=== PATIENT | female | born 1940 | race Caucasian/White ===

== ENCOUNTER 2020-03-29 09:34 | Emergency (ER) | payer MEDICARE, MEDICAID, SELFPAY ==
[2020-03-29 09:35] VITALS: BP 128/54; PULSE 94; RESP 16; TEMP 37.4; O2SAT 92; BMI 28.8
--- NOTE | 2020-03-29 10:08 | PC.NURSE ---
I called and spoke with pt's daughter in law and told her that the pt was A&O times 3. Pt was able to tell me her name, , that she was in a hospital and what year it was. Pt advises she does not want anything done at this time. I asked her about starting an IV, getting a urine and obtaining a chest x-ray. PT declined all of the following procedures. When I spoke with SAMIA she advised that we were to follow the patient's wishes and do what she asked, and confirmed her DNR status. KAYLEEN Holliday spoke with SAMIA and confirmed this also
[2020-03-29 10:36] VITALS: BP 141/83
--- NOTE | 2020-03-29 10:38 | PC.NURSE ---
Due to pt declining to have any work up done she has removed the pulse ox and does not want to have anything done. Pt is resting in her room with the lights off in position of comfort.
--- NOTE | 2020-03-29 10:40 | [facility].EDGENADL ---
ED Disposition Clinical Impression: Pneumonia Disposition: Home, Self-Care Condition on Discharge: Good Instructions: Pneumonia-Adult Referrals: Yovany Hickey MD [Primary Care Provider] - - Critical Care Critical Care Time: No Attestation: On 03/29/20, the high probability of a clinically significant, sudden or life threatening deterioration of the following system(s) required my full and direct attention, intervention and personal management. The time I documented below is in addition to time spent performing reported procedures but includes the following listed in this critical care notation. Medical Decision Making - Medical Records Medical records reviewed: Yes: I reviewed the patient's medical records. - Mt Inquiry Pt receiving controlled substance: No Vital Signs: 03/29/20 09:35 03/29/20 10:36 Temperature 99.4 F Temperature Source Oral Pulse Rate [Right] 94 H Respiratory Rate 16 Blood Pressure [Right Arm] 128/54 L 141/83 H Blood Pressure Mean [Right Arm] 78 102 Blood Pressure Source [Right Arm] Automatic Cuff Automatic Cuff Blood Pressure Position [Right Arm] Sitting Sitting 02 Sat by Pulse Oximetry 92 L Oxygen Delivery Method Nasal Cannula Oxygen Flow Rate (LPM) 2 - Lab Data Lab results reviewed: Yes: I reviewed the patient's lab results. General Adult HPI - General Chief complaint: Weakness Stated complaint: not feeling well Time Seen by Provider: 03/29/20 10:40 Mode of Arrival: EMS Source of Information: Patient Limitations: No Limitations Description of Symptoms (Recalled from ER Triage Doc. by RN): Pt c/o from [facility], staff advises pt has been declining over the past couple of days.Pt is being treated for UTI and pneumonia. Pt arrived to ED and advises she doesn't want any treatment and doesn't want to be bothered at this time. - History of Present Illness HPI narrative: 79-year-old female presented to the ED via detention. group home stated that she has had UTI and also being treated for pneumonia but just has not done well over the last couple of days. When the patient got here in the ED she stated she did not want anything done. Patient is alert and oriented x4. She states that she did not want to come over here in the first place but the detention sent her. We also spoke with the daughter and the daughter stated that she would like to respect her mother's wishes and since she does not want to be treated she just wants to go back to the detention. OtherwisePatient denies any recent cough or shortness of breath, patient denies any sore throat or headache, patient denies any loss of taste or smell, patient denies any malaise or fatigue, patient denies any abdominal pain nausea vomiting or diarrhea. - Related Data Home Medications Medication Instructions Recorded Confirmed acetaminophen 500 mg tablet 500 mg PO Q6H PRN 02/18/20 02/18/20 aspirin 81 mg tablet,delayed 81 mg PO DAILY 02/18/20 02/18/20 release atorvastatin 20 mg tablet 20 mg PO DAILY 02/18/20 02/18/20 bisacodyl 10 mg rectal suppository 10 mg [place] DAILY PRN 02/18/20 02/18/20 calcium carbonate 500 mg calcium 500 mg PO BID 02/18/20 02/18/20 (1,250 mg) chewable tablet cholecalciferol (vitamin D3) 25 25 mcg PO DAILY 02/18/20 02/18/20 mcg (1,000 unit) capsule digoxin 125 mcg (0.125 mg) tablet 125 mcg PO DAILY 02/18/20 02/18/20 fluticasone 250 mcg-salmeterol 50 1 inh INHALATION BID 02/18/20 02/18/20 mcg/dose blistr powdr for inhalation hydrochlorothiazide 25 mg tablet 25 mg PO DAILY 02/18/20 02/18/20 isosorbide mononitrate 30 mg 30 mg PO DAILY 02/18/20 02/18/20 tablet,extended release 24 hr levothyroxine 25 mcg tablet 25 mcg PO DAILY 02/18/20 02/18/20 loratadine 10 mg tablet 10 mg PO DAILY 02/18/20 02/18/20 lorazepam 1 mg tablet 1 mg PO BID PRN 02/18/20 02/18/20 metformin 1,000 mg tablet 1,000 mg PO DAILY 02/18/20 02/18/20 nitroglycerin 0.4 mg sublingual 0.4 mg SUBL
[2020-03-29 11:05] VITALS: BP 133/57; PULSE 97; O2SAT 97
--- NOTE | 2020-03-29 11:08 | PC.NURSE ---
Called [facility] and advised them that the patient did not want anything done at this time. And that I had spoken with the DIL who was agreeance and told us to honor the patinet's wishes. custodial agreeable. Notified Rober of transfer back to [facility].
[2020-03-29 11:16] VITALS: BP 133/57; PULSE 87; RESP 16; TEMP 37.2; O2SAT 98
== END 2020-03-29 11:19 | disposition home or self-care (01) ==
PROVIDERS: Emergency Provider Family Medicine; PCP Family Medicine
DX: J18.9 Pneumonia, unspecified organism (principal); N30.00 Acute cystitis without hematuria; E11.9 Type 2 diabetes mellitus without complications; I48.91 Unspecified atrial fibrillation; Z86.73 Personal history of transient ischemic attack (TIA), and cerebral infarction without residual deficits; Z99.81 Dependence on supplemental oxygen; Z85.038 Personal history of other malignant neoplasm of large intestine; I25.2 Old myocardial infarction; I10 Essential (primary) hypertension; E78.5 Hyperlipidemia, unspecified; Z87.891 Personal history of nicotine dependence; Z88.0 Allergy status to penicillin; Z88.2 Allergy status to sulfonamides; Z88.6 Allergy status to analgesic agent
CPT/HCPCS: 99282